=== PATIENT | female | born 1960 | race Caucasian/White ===

== ENCOUNTER → 2016-03-12 | Outpatient (CLI) | payer BC ==
[~2016-03-12] MED LIST: GABA-112 PO; HYDR0.5T PO; MULT-513 PO; OMEG10007 PO; VIT B 12
[2016-03-12 13:29] LABS: CHOLESTEROL 178 mg/dl (0-200); CHOLESTEROL/HDL RATIO 2.7; HDL CHOLESTEROL 65 mg/dl; TRIGLYCERIDES 96 mg/dl (0-150); VERY LOW DENSITY LIPOPROT CALC 19 mg/dl
== END | disposition home or self-care (01) ==
LOC: C.LABSPEC 12:40
PROVIDERS: ATTEND Internal Medicine
DX: E78.5 Hyperlipidemia, unspecified (principal); E03.9 Hypothyroidism, unspecified; E55.9 Vitamin D deficiency, unspecified

== ENCOUNTER → 2016-07-21 | Outpatient (CLI) | payer BC | END | disposition home or self-care (01) | LOC: C.PAPS 10:57 | PROVIDERS: ATTEND Obstetrics & Gynecology | DX: Z01.419 Encounter for gynecological examination (general) (routine) without abnormal findings (principal); Z11.51 Encounter for screening for human papillomavirus (HPV) ==

== ENCOUNTER → 2016-09-24 | Outpatient (CLI) | payer BC ==
--- NOTE | 2016-09-24 12:43 | MAMMOGRAPHY REPORT ---
BILATERAL DIGITAL SCREENING MAMMOGRAM TOMOSYNTHESIS WITH CAD: 09/24/2016 CLINICAL HISTORY: Routine screening. Patient has no complaints. TECHNIQUE: Breast tomosynthesis in addition to standard 2D mammography was performed. Current study was also evaluated with a Computer Aided Detection (CAD) system. COMPARISON: Comparison is made to exams dated: 09/19/2015 mammogram, 09/07/2014 mammogram, 09/06/2013 arie mogram, 08/31/2012 mammogram, 08/26/2011 mammogram, and 08/20/2010 mammogram - [facility] er. BREAST COMPOSITION: There are scattered areas of fibroglandular density in both breasts. FINDINGS: There is a 4.5 mm nodular asymmetry in the anterior subareolar left breast, only seen on t he MLO view, for which additional spot compression tomosynthesis views and possibly ultrasound are re commended. No other suspicious mass, architectural distortion or cluster of microcalcifications is seen bilatera lly. IMPRESSION: ACR BI-RADS CATEGORY 0: INCOMPLETE EVALUATION: NEED ADDITIONAL IMAGING EVALUATION The 4.5 mm nodular asymmetry in the left subareolar breast needs additional evaluation. The patient will be called to schedule an appointment. Approximately 10% of breast cancers are not detected with mammography. A negative mammographic report should not delay biopsy if a clinically suggestive mass is present. Eunice Sheikh M.D. ay/:09/24/2016 08:08:17 Chocolate Dipper: Yesenia SÁNCHEZ)(Lobo), [facility] letter sent: Addl Imaging 0 BI-RADS Code: ACR BI-RADS Category 0: Incomplete Evaluation: Need Additional Imaging Evaluation
== END | disposition home or self-care (01) ==
LOC: C.MAMM 07:26
PROVIDERS: ATTEND Obstetrics & Gynecology
DX: Z12.31 Encounter for screening mammogram for malignant neoplasm of breast (principal); N64.89 Other specified disorders of breast

== ENCOUNTER → 2016-10-02 | Outpatient (CLI) | payer BC ==
--- NOTE | 2016-10-02 12:46 | MAMMOGRAPHY REPORT ---
UNILATERAL LEFT DIGITAL DIAGNOSTIC MAMMOGRAM TOMOSYNTHESIS AND TARGETED LEFT ULTRASOUND: 10/02/2016 CLINICAL HISTORY: Callback from screening mammogram for left breast asymmetry. TECHNIQUE: Breast tomosynthesis in addition to standard 2D mammography was performed. Spot compress ion left MLO 2-D and tomosynthesis images were obtained. COMPARISON: Comparison is made to exams dated: 09/24/2016 mammogram, 09/19/2015 mammogram, 09/07/2014 ma mmogram, 09/06/2013 mammogram, 08/31/2012 mammogram, and 08/26/2011 mammogram - [facility]. BREAST COMPOSITION: There are scattered areas of fibroglandular density in the left breast. FINDINGS: The spot compression views of the left breast demonstrate a persistent low density 5 mm no dular asymmetry in the left subareolar breast on the MLO view only. The asymmetry appears similar on the additional views to the prior 2016 exam. Targeted ultrasound was performed of the left subareolar breast in the region of the mammographic asy mmetry. There is mild benign duct ectasia in the left subareolar breast. Additionally, there is an oval anechoic benign simple cyst measuring 3 x 3 mm in the left subareolar breast, which likely corre sponds with the mammographic asymmetry. No suspicious solid masses are evident. IMPRESSION: ACR BI-RADS CATEGORY 2: BENIGN, TARGETED ULTRASOUND ACR BI-RADS CATEGORY 2: BENIGN Small 3 mm benign simple cyst in the left subareolar breast, which is felt to correspond with the arie mographic asymmetry. There is no mammographic or targeted sonographic evidence of malignancy. A 1 ye ar screening mammogram is recommended. The patient has been verbally notified of the results. Approximately 10% of breast cancers are not detected with mammography. A negative mammographic report should not delay biopsy if a clinically suggestive mass is present. Shana Sol M.D. ah/:10/02/2016 10:58:25 Figure Model: Mary SÁNCHEZ)(Lobo), [facility] letter sent: Normal 1/2 BI-RADS Code: ACR BI-RADS Category 2: Benign Ultrasound BI-RADS: ACR BI-RADS Category 2: Benign
== END | disposition home or self-care (01) ==
LOC: C.MAMM 09:04
PROVIDERS: ATTEND Obstetrics & Gynecology
DX: N60.02 Solitary cyst of left breast (principal)

== ENCOUNTER → 2016-12-10 | Outpatient (CLI) | payer BC ==
[2016-12-10 13:09] LABS: THYROID STIMULATING HORMONE 1.45 uIu/ml (0.300-4.500)
== END | disposition home or self-care (01) ==
LOC: C.LABSPEC 12:13
PROVIDERS: ATTEND Internal Medicine
DX: E03.9 Hypothyroidism, unspecified (principal); Z79.899 Other long term (current) drug therapy

== ENCOUNTER → 2017-02-10 | Outpatient (CLI) | payer BC ==
--- NOTE | 2017-02-10 15:30 | DIAGNOSTIC IMAGING REPORT ---
R HAND 2 VIEWS HISTORY: 56 years-old Female M12.30 follow-up study in a patient with rheumatoid arthritis COMPARISON: Right hand radiographs 03/28/2015 TECHNIQUE: PA and lateral views of the right and FINDINGS: Mild periarticular osteopenia. Moderate first carpometacarpal osteoarthritis. Moderate joint space narrowing with subchondral sclerosis and mild marginal spurring is seen throughout the interphalangeal joints which appear unchanged. Mild metacarpophalangeal degenerative changes also noted. Mild radiocarpal joint space narrowing. No erosive changes identified. Soft tissues are unremarkable without opaque foreign body. IMPRESSION: 1. No acute bony abnormality. No erosive changes identified to suggest inflammatory arthropathy. 2. Stable appearing arthritis as above. The above report was generated using voice recognition software. It may contain grammatical, syntax or spelling errors. Electronically signed by: Ignacio Villareal M.D. 02/10/2017 3:28 PM Dictated Date/Time: 02/10/2017 3:25 PM
--- NOTE | 2017-02-10 15:39 | DIAGNOSTIC IMAGING REPORT ---
L FOOT 2 VIEWS HISTORY: 56 years-old Female M12.30 follow-up study in a patient with rheumatoid arthritis. Left foot pain. COMPARISON: Left foot radiograph 03/28/2015 TECHNIQUE: 3 views of the left foot FINDINGS: No acute fracture or dislocation. Mild first MTP joint joint space narrowing with marginal spurring and subchondral sclerosis. Mild multidigit interphalangeal joint space narrowing is also present. There is a focal marginal erosion involving the lateral aspect of the fifth metatarsal head with mild associated soft tissue swelling, new from prior. No definite additional erosions identified. Mild dorsal forefoot soft tissue swelling. Mild marginal spurring of the talonavicular joint. Tiny enthesophytes about the plantar and Achilles fashion sites of the calcaneus. IMPRESSION: 1. No acute fracture or subluxation. 2. Small marginal erosion involving the lateral aspect of the fifth metatarsal head with associated soft tissue swelling is new from prior study, suggesting inflammatory arthropathy. The above report was generated using voice recognition software. It may contain grammatical, syntax or spelling errors. Electronically signed by: Ignacio Villareal M.D. 02/10/2017 3:37 PM Dictated Date/Time: 02/10/2017 3:34 PM
--- NOTE | 2017-02-10 15:49 | DIAGNOSTIC IMAGING REPORT ---
LEFT HAND 2 VIEWS CLINICAL HISTORY: Hand pain. Arthritis. FINDINGS: 2 views of left hand are compared to study dated 03/28/2015. The skeletal structures are well mineralized for age. No fracture is seen. There is minimal degenerative narrowing at the radiocarpal articulation. Mild to moderate osteoarthritic change with bony overgrowth and sclerosis is seen at the first carpometacarpal joint. Minimal osteoarthritic change is present involving the first metacarpophalangeal joint and the interphalangeal joints. No bony erosion is identified. The overlying soft tissues are normal in appearance. IMPRESSION: Osteopenia and arthritic change as above. No acute bony abnormality is seen and the findings are similar to the 03/28/2015 examination. Electronically signed by: Ric Gandhi M.D. 02/10/2017 3:48 PM Dictated Date/Time: 02/10/2017 3:46 PM
--- NOTE | 2017-02-10 15:50 | DIAGNOSTIC IMAGING REPORT ---
RIGHT FOOT 2 VIEWS CLINICAL HISTORY: Arthritis. FINDINGS: AP and lateral views of the right foot are compared to study dated 03/28/2015. The skeletal structures are well mineralized for age. No fracture is seen. Mild arthritic change is present at the first metatarsophalangeal joint. The joint spaces are otherwise preserved. The overlying soft tissues are within normal limits. No erosive change is seen. IMPRESSION: No acute bony abnormality is seen in the right foot. Electronically signed by: Ric Gandhi M.D. 02/10/2017 3:49 PM Dictated Date/Time: 02/10/2017 3:48 PM
== END | disposition home or self-care (01) ==
LOC: C.RAD1850 14:56
PROVIDERS: ATTEND Internal Medicine
DX: M12.30 Palindromic rheumatism, unspecified site (principal); M15.4 Erosive (osteo)arthritis; M85.842 Other specified disorders of bone density and structure, left hand; M18.12 Unilateral primary osteoarthritis of first carpometacarpal joint, left hand; M19.042 Primary osteoarthritis, left hand

== ENCOUNTER → 2017-04-09 | Outpatient (CLI) | payer BC ==
[2017-04-09 14:34] LABS: BASO % 0.6 %; BASO ABS # 0.03 K/uL (0-0.2); EOS % 4.1 %; EOS ABS # 0.22 K/uL (0-0.5); HEMATOCRIT 44.5 % (37-47); HEMOGLOBIN 14.9 g/dL (12.0-16.0); IG# 0.01 K/uL (0.00-0.02); LYMPH % 26.9 %; LYMPH ABS # 1.44 K/uL (1.2-3.4); MEAN CELL VOLUME 94.3 fL (80-100); MEAN CORPUSCULAR HEMOGLOBIN 31.6 pg (25-34); MEAN CORPUSCULAR HGB CONC 33.5 g/dl (32-36); MONO % 7.5 %; NEUT % 60.7 %; NEUT ABS # 3.25 K/uL (1.4-6.5); PLATELET COUNT 283 K/uL (130-400); RED CELL DISTRIBUTION WIDTH CV 12.4 % (11.5-14.5); WHITE BLOOD COUNT 5.35 K/uL (4.8-10.8)
[2017-04-09 14:35] LABS: HEMOGLOBIN A1C 5.7 % (4.5-5.6)
[2017-04-09 14:45] LABS: ALBUMIN 3.9 gm/dl (3.4-5.0); ALT/SGPT 21 U/L (12-78); AST/SGOT 11 U/L (15-37); BLOOD UREA NITROGEN 15 mg/dl (7-18); CALCIUM 9.1 mg/dl (8.5-10.1); CARBON DIOXIDE 28 mmol/L (21-32); CHOLESTEROL 200 mg/dl (0-200); CREATININE 0.81 mg/dl (0.60-1.20); GLUCOSE 80 mg/dl (70-99); POTASSIUM 4.1 mmol/L (3.5-5.1); SODIUM 137 mmol/L (136-145)
[2017-04-09 14:56] LABS: ALKALINE PHOSPHATASE 55 U/L (45-117); LDL CHOLESTEROL (DIRECT) 129 mg/dl
== END | disposition home or self-care (01) ==
LOC: C.LABSPEC 13:11
PROVIDERS: ATTEND Internal Medicine
DX: R20.0 Anesthesia of skin (principal); E78.5 Hyperlipidemia, unspecified; E03.9 Hypothyroidism, unspecified

== ENCOUNTER → 2017-05-06 | Outpatient (CLI) | payer BC ==
[2017-05-13 14:44] LABS: FECAL OCCULT BLOOD #1 NEGATIVE (NEGATIVE); FECAL OCCULT BLOOD #2 NEGATIVE (NEGATIVE); FECAL OCCULT BLOOD #3 NEGATIVE (NEGATIVE)
== END | disposition home or self-care (01) ==
LOC: C.LABSPEC 14:28
PROVIDERS: ATTEND Internal Medicine
DX: Z12.11 Encounter for screening for malignant neoplasm of colon (principal)

== ENCOUNTER → 2017-09-30 | Outpatient (CLI) | payer BC ==
--- NOTE | 2017-09-30 14:55 | MAMMOGRAPHY REPORT ---
BILATERAL DIGITAL SCREENING MAMMOGRAM TOMOSYNTHESIS WITH CAD: 09/30/2017 TECHNIQUE: The study was acquired using full field digital technology and interpreted from soft copy. Breast tomosynthesis in addition to standard 2D mammography was performed. Current study was also ev aluated with a Computer Aided Detection (CAD) system. COMPARISON: Comparison is made to exams dated: 10/02/2016 mammogram, 09/24/2016 mammogram, 09/19/2015 ma mmogram, 09/07/2014 mammogram, 09/06/2013 mammogram, and 08/31/2012 mammogram - [facility] BREAST COMPOSITION: There are scattered areas of fibroglandular density in both breasts. FINDINGS: No suspicious masses, calcifications, or areas of architectural distortion are noted in either breast . There has been no significant interval change compared to prior exams. IMPRESSION: ACR BI-RADS CATEGORY 1: NEGATIVE There is no mammographic evidence of malignancy. A 1 year screening mammogram is recommended.( 019) The patient will receive written notification of the results. Some breast cancers are not detected with mammography. A negative mammographic report should not hugo y biopsy if a clinically suggestive mass is present. Shana Sol M.D. ah/:09/30/2017 08:21:07 Frontload Driver: RT Marvel(R)(M), [facility] letter sent: Normal 1/2 BI-RADS Code: ACR BI-RADS Category 1: Negative
== END | disposition home or self-care (01) ==
LOC: C.MAMM 07:57
PROVIDERS: ATTEND Internal Medicine
DX: Z12.31 Encounter for screening mammogram for malignant neoplasm of breast (principal)

== ENCOUNTER 2023-11-06 05:19 | Observation (INO) ==
--- NOTE | 2023-10-02 11:58 | PAT Medication Instructions ---
Medication Instructions Date of Service October 02, 2023 Home Medications Medication Instructions Recorded hydroxychloroquine 200 mg tablet 200 mg PO DAILY #90 tabs 04/23/23 biotin 10 mg tablet 10 mg PO DAILY cyanocobalamin (vitamin B-12) 500 mcg tablet 500 mcg PO DAILY ibuprofen 200 mg capsule 200 mg PO BID PRN Pain kidstjylshad-Po-nbcr-minerals (Multiple Vitamin, Womens tablet) 1 tab PO DAILY bupropion HCl 300 mg 24 hr tablet, extended release (Wellbutrin XL) 150 mg PO BID cholecalciferol (vitamin D3) 125 mcg (5,000 unit) capsule 125 mcg PO DAILY hydroxychloroquine 200 mg tablet 200 mg PO DAILY levothyroxine 175 mcg tablet 88 mcg PO QAM ASK your surgeon for instructions ibuprofen 200 mg capsule 200 mg PO BID PRN Pain ASK your prescriber and surgeon hydroxychloroquine 200 mg tablet 200 mg PO DAILY DO NOT take the morning of surgery biotin 10 mg tablet 10 mg PO DAILY cyanocobalamin (vitamin B-12) 500 mcg tablet 500 mcg PO DAILY wdwsggkezumv-Ql-tovy-minerals (Multiple Vitamin, Womens tablet) 1 tab PO DAILY cholecalciferol (vitamin D3) 125 mcg (5,000 unit) capsule 125 mcg PO DAILY Take morning of surgery With a small sip of water, OTHERWISE NOTHING TO EAT OR DRINK AFTER MIDNIGHT: bupropion HCl 300 mg 24 hr tablet, extended release (Wellbutrin XL) 150 mg PO BID levothyroxine 175 mcg tablet 88 mcg PO QAM Take evening before surgery bupropion HCl 300 mg 24 hr tablet, extended release (Wellbutrin XL) 150 mg PO BID Other Notes If you have any questions please call us at [phone] or [phone] or [phone] or [phone]
--- NOTE | 2023-10-13 09:28 | Anesthesiology Consultation ---
Date of Service October 13, 2023 Assessment & Plan (1) Encounter for pre-operative examination: - cardiology office visit 04/23/23 [facility]: "...presents for cardiology evaluation due to palpitations. Describes chest fluttering and racing heartbeats on nearly a daily basis. No associated lightheadedness, dizziness, syncope or near syncope...attributes symptoms at times to stress and anxiety...calculated atherosclerotic cardiovascular disease risk is 4.9% utilizing traditional risk factors, however, history of rheumatoid arthritis not accounted for...recommendations/plan: CT cardiac calcium score...echo...external ekg 2 to 7 days..." Ordered testing was completed and resulted as above, nothing additional needed per discussion with Dr. Do. - Outpatient joint assessment: Patient is currently scheduled for inpatient pathway. Chart Review Chart Review: Acceptable Risk for Surgery and Patient seen in Pre Admission Testing Teaching & Discussion Pre-Anesthesia Teaching/Discussion Notes: Instructed NPO after midnight before surgery, except medications with 15 cc of water. Medication instructions provided according to the PAT guidelines. History Surgery Operation Date: 11/06/23 07:00 Proposed Procedures p Right Total Hip Arthroplasty Anterior - Ish Tuttle, Height/Weight Height: 5 ft 5 in Weight: 75.1 kg Allergies Allergy/AdvReac Type Severity Reaction Status Date / Time Penicillins Allergy Mild RASH Verified 10/13/23 08:12 Medications Home Medications Medication Instructions Recorded Confirmed Last Taken biotin 10 mg tablet 10 mg PO DAILY 11/06/18 10/02/23 Unknown cyanocobalamin (vitamin B-12) 500 500 mcg PO DAILY 11/06/18 10/02/23 Unknown mcg tablet ibuprofen 200 mg capsule 200 mg PO BID PRN Pain 11/06/18 10/02/23 Unknown mpanbbxolnah-Jw-hmpf-minerals 1 tab PO DAILY 11/06/18 10/02/23 Unknown (Multiple Vitamin, Womens tablet) bupropion HCl 300 mg 24 hr tablet, 150 mg PO BID 04/23/22 10/02/23 Unknown extended release (Wellbutrin XL) cholecalciferol (vitamin D3) 125 125 mcg PO DAILY 04/23/22 10/02/23 Unknown mcg (5,000 unit) capsule hydroxychloroquine 200 mg tablet 200 mg PO DAILY #90 tabs 04/23/23 10/02/23 Unknown levothyroxine 175 mcg tablet 88 mcg PO QAM 05/11/23 10/02/23 Unknown lorazepam 0.5 mg tablet 0.5 mg PO DAILY PRN Anxiety 10/13/23 10/13/23 Unknown Additional Notes: Patient states that she has lorazepam 0.5 mg taken rarely prn for anxiety-she was advised this can be continued prn and it was written on provided medication instructions. She verbalized understanding, denied questions, concerns or additional medications. Past Medical History Medical History (Updated 10/13/23 @ 09:40 by Eliza Frazier PA-C) Anxiety Depression History of COVID-19 (2019) no hosp; resolved Hx of ovarian cyst (~2008) Hx of rheumatoid arthritis Hypothyroidism Osteoarthritis Patient denies h/o stroke, seizures, heart attack, heart failure, DM, HTN, blood clots/DVTs or blood transfusions. Exercise / Class Metabolic Activity II 4-5 Yardwork/Stairs/Walk up hill (denies chest discomfort or shortness of breath with one flight of stairs) Past Family History Family History Other Cancer Diabetes Heart disease Denies family history of Ovarian cancer Breast cancer Colorectal cancer Past Surgical History Surgical History (Updated 10/13/23 @ 09:40 by Eliza Frazier PA-C) H/O varicose vein ligation History of back surgery lumbar Hx of tubal ligation S/P cervical spinal fusion x 3 - C4-C6; full ROM S/P colonoscopy S/P knee surgery right Status post hysteroscopic ablation of endometrium Status post repair of nerve right ulnar Past Anesthesia History No Hx of Anesthesia Complications and No Family Hx of Anesthesia Complications History of PONV No Hx of Motion Sickness and History of PONV (denies needing scop patch) Social History Smoking Status: Never smoker Do You Dip or Chew Tobacco: No Hx Alcohol Use: Yes Alcohol type: wine alcohol intake frequency: a few times a month Hx Substance Use: No substance use type: does not use Review of Systems Occasional snoring, denies witnessed apneas. Patient denies chest pain, shortness of breath, dyspnea on exertion, reflux, fever, chills, cough, wheezing, or palpitations. Physical Exam Vital Signs Vitals BP 120/64 P 79 TEMP 97.8 SP02 97% on RA RESP 18 Physical Patient resting comfortably in chair in no acute distress, alert and oriented, responding appropriately throughout visit Limited cervical extension range of motion without pain TMD 3.5 finger breadths Mallampati Score 2 Dentition: several caps/crowns, denies chipped or loose teeth, implants or bridges Lungs: normal respiratory effort. Good air movement, clear throughout to auscultation, no adventitious breath sounds Cardiac: regular rate and rhythm, no murmurs noted Carotid arteries: negative bruit bilat Lab Results Anesthesia Preop Results Results Anesthesia Widget: WBC 4.36 K/ul (4.8-10.8) L 10/13/23 Hgb 13.8 g/dl (12.0-16.0) 10/13/23 Hct 40.7 % (37.0-47.0) 10/13/23 Plt 293 K/uL (130-400) 10/13/23 Na 139 mmol/L (136-145) 10/13/23 K 4.4 mmol/L (3.5-5.1) 10/13/23 Cl 106 mmol/L (98-107) 10/13/23 CO2 29 mmol/L (21-32) 10/13/23 BUN 15 mg/dl (6-23) 10/13/23 Creat 0.73 mg/dl (0.6-1.2) 10/13/23 Glucose Level 95 mg/dl (70-99(Fasting)) 10/13/23 PT 10.3 Seconds (9.0-12.0) 10/13/23 PTT 25 Seconds (21-31) 10/13/23 INR 0.9 (0.9-1.1) 10/13/23 Blood Type B Positive 10/13/23 Antibody Screen NEGATIVE 10/13/23 Testing Electrocardiogram Date: 10/13/23 NSR, rate 70 bpm Chest X-Ray Date: 10/13/23 No acute process. Echocardiogram Date: 04/30/23 EF 60-64% Normal LV wall motion Severe focal mitral annular calcification Grade I diastolic dysfunction Stress Test Date: 11/11/17 No evidence of inducible ischemia No significant valvular heart disease MPHR 94% METS 9.7 EF 55-60% Normal LV wall motion at rest Mild diastolic dysfunction Cervical Spine Date: 10/13/23 1. No fractures within the cervical spine. 2. Alignment remains intact throughout flexion and extension. 3. Postoperative and degenerative changes again noted. This is similar to the prior study. Other Testing Cardiac calcium score 04/30/23 Total coronary calcium score is 0. Cardiac event monitor 04/29/23 Sinus rhythm (66-127, avg 87 bpm) Rare isolated SVEs, SVE couplets, isolated VEs Ventricular bigeminy was present
[~2023-11-06 05:19] MED LIST changes: +ALLERGY Noted to ORDERED Medication SCH; -GABA-112 PO; -HYDR0.5T PO; -MULT-513 PO; -OMEG10007 PO; -VIT B 12
--- OUTSIDE RECORDS SUMMARY | 2023-11-06 05:22 | External Medical Summary | Summary of Care ---
Author Name Unknown Organization [facility] Address [address] [place] [address] Phone [phone] Care Team Providers Care Cafe Operator Name Role Phone Nam Fair MD Primary Care Provid er Reason for Visit * Reason Comments eRx-Medication Refill Encounter Details Date Type Department Care Team (Late st Contact Info) Description 10/23/2023 Refill [facility] [address] [facility] [place] [address] Nam Fair MD [address] [place] [address] Acquired hypothyroidism Allergies Active Allergy Reactions Criticality Noted Date Comments Penicillins Low 01/20/2002 Other reaction(s): RASH documented as of this encounter (statuses as of 10/23/2023) Medications Medication Sig Dispensed Refills Start Date End Date Status Multiple Vitamin (MULTIVITAMINS) Capsule 1 daily Active B Complex Vitamins (VITAMIN B COMPLEX) Tablet 1 daily Active Cholecalciferol (VITAMIN D) 1000 UNITS Tablet 1 daily Active Biotin 7500 MCG TABS 1 daily Acti ve LORAzepam (ATIVAN) 0.5 MG Tablet As needed 09/12/2018 Active Vitamin C 500 MG Oral Tablet (ASCORBIC ACID) Take 1 Tablet by mouth in the morning. Active Hydroxychloroquine Sulfate 200 MG Oral Tablet (Plaquenil)Indicatio ns:Palindromic rheumatism TAKE 1 TABLET DAILY 90 Tablet 3 12/13/2021 Active buPROPion HCl ER (SR) 150 MG Oral Tablet Extended Release 12 Hour (Wellbutrin SR) TAKE 1 TABLET IN THE MORNING AND 1 TABLET BEFORE BEDTIME 180 Tablet 3 06/10/2023 Active Levothyroxine Sodium 88 MCG Oral Tablet (Levoxyl)Indications :Acquired hypothyroidism TAKE 1 TABLET DAILY FIRST THING IN THE MORNING 90 Tablet 1 10/23/2023 Active Levothyroxine Sodium 88 MCG Oral Tablet (Levoxyl)Indications :Acquired hypothyroidism TAKE 1 TABLET DAILY FIRST THING IN THE MORNING 90 Tablet 3 10/27/2022 4 Discontinued documented as of this encounter (statuses as of 10/23/2023) Active Problems Problem Noted Date Diagnosed Date MEDICATION USE AGREEMENT 07/17/2021 Acquired hypothyroidism 07/17/2021 Rheumatoid arthritis involvi ng multiple sites with positive rheumatoid factor 10/06/2019 Primary osteoarthritis involving multiple joints 06/07/2015 [facility] arthritis, thumb, degenerative 11/20/2014 DDD (degenerative disc disease), cervical 2014 DDD (degenerative disc disease), lumbar 11/21/19 15 documented as of this encounter (statuses as of 10/23/2023) Immunizations Name Administration Dates Next Due Pneumococcal Conjugate Vacci ne, 20-valent ([id number]) 03/21/2022 Seasonal Influenza Virus Vac cine, Unspecified Formulation 12/01/2019,11/30/2015 Seasonal Influenza, Intradermal 11/30/2015 Seasonal Influenza, PF, 6 M & above, IM , (FluLaval or Fluzone) 12/19/2022,12/12/2021,12/01/2019 documented as of this encounter Social History Tobacco Use Types Packs/Day Years Used Date Smoking Tobacco: Never Smokeless Tobacco: Never Alcohol Use Standard Drinks/Week Comments No 0 (1 standard drink = 0.6 oz pur e alcohol) PHQ-2 Answer Date Recorded PHQ Adult Total Score 0 03/21/2022 Utilities Answer Date Recorded Do you have trouble paying y our heating, water, or electric bill? (Adult - for ages 18 years and over) Not on file 08/18/2023 Is your family able to pay t he heat, water, or electric bill? (Household - for ages 0-17 years) Not on file 08/18/2023 Does your family have access to good internet? (Household - for ages 0-17 years) Not on file 08/18/2023 Social Connections Answer Date Recorded How often do you feel lonely or isolated from those around you? (Adult - for ages 18 years and over) Not on file 08/18/2023 Sex and Gender Information Value Date Recorded Sex Assigned at Not on file Gender Identity Not on file Sexual Orientation Not on file Job Start Date Occupation Industry Not on file Not on file Not on file documented as of this encounter Miscellaneous Notes * Telephone Encounter - Stevie Donovan [facility] - 10/23/2023 3:22 PM EDTSigned Prescriptions: Disp Refills Levothyroxine Sodium 88 MCG Oral Tablet (L*90 Tab*1 Sig: TAKE 1 TABLET DAILY FIRST THING IN THE MORNINGAuthorizing Provider: NAM FAIR User:STEVIE DONOVAN documented in this encounter Plan of Treatment Upcoming Encounters Date Type Department Care Team (Late st Contact Info) Description 03/11/2024 9:00 AM EST Office Visit [facility] [address] [place] [address] Nam Fair MD [address] [place] [address] Health Maintenance Due Date Last Done Comments COVID-19 Vaccine (#1) 05/24/1964 HIV Screening 05/24/1974 Hepatitis C Screening 05/24/1977 DTaP,Tdap,and Td Vaccines (1 - Tdap) 05/24/1978 Zoster Vaccines (1 of 2) 05/24/1978 HPV/Co-Test 05/24/1989 Cologuard 05/24/2004 Colonoscopy 05/24/2004 Sigmoidoscopy 05/24/2004 Colorectal Cancer Screening 05/11/2022 Fecal Occult Blood Test 05/11/2022 05/11/2021 Depression Screening 03/21/2023 03/21/2022 Influenza Vaccine (FLU shot) (#1) 2023 12/19/2022, 12/12/2021, 12/01/2019, Additional history exists Mammogram 11/29/2023 11/28/2022, 11/01, 11/21/2020 TSH 03/10/2024 03/10/2023, 08/01, 03/21/2022, Additional history exists Cervical Cancer Screening 02/14/2025 Pap Smear 02/14/2025 02/14/2022 Diabetes Screening 03/10/2026 03/10/2023, 0 03/21/2022, 05/08/2021, Additional history exists Lipid Panel 03/10/2028 03/10/2023, 05/08/2021 Pneumococcal Vaccine: Pediatrics (0 to 5 Years) and At-Risk Patients (6 to 64 Years) Completed 03/21/2022 HPV (Gardasil) Vaccine Aged Out No lo nger eligible based on patient's age to complete this topic Hepatitis B Vaccine Aged Out No longe r eligible based on patient's age to complete this topic MENINGOCOCCAL (MENACTRA/MENVEO) Aged Out No longer eligible based on patient's age to complete this topic documented as of this encounter Medical Devices Not on filedocumented as of this encounter Visit Diagnoses Diagnosis Acquired hypothyroidism Unspecified hypothyroidism documented in this encounter Care Teams Cafe Operator Relationship Specialty Start Date End Date Nam Fair MD [address] [place] [address] PCP - General Family Medicine 07/17/21 documented as of this encounter
[2023-11-06] MEDS ORDERED: Nursing to Pharmacy Communication SCH (05:45)
[2023-11-06] MEDS: FAMOTIDINE 20 MG TAB PO SCH (05:53)
[2023-11-06] MEDS: GABAPENTIN 600 MG DOSE PO SCH (05:53)
[2023-11-06] MEDS: dexAMETHasone**PF** 10 MG/ML VIAL IV SCH (05:53)
[2023-11-06] MEDS: ACETAMINOPHEN 500 MG TAB PO SCH ×2 (05:53→16:27)
[2023-11-06] MEDS: LR 60ML/HR IV SCH (05:54)
[2023-11-06] MEDS: LR 500ML BOLUS, THEN 15ML/HR IV SCH (05:54)
[2023-11-06] MEDS ORDERED: ePHEDrine sulfate 50 MG/ML AMP IV PRN (06:22)
[2023-11-06] MEDS ORDERED: fentaNYL citrate PF 100 MCG/2 ML VIAL IV PRN (06:22)
[2023-11-06] MEDS ORDERED: ATROPINE SULFATE 0.1 MG/ML 10ML SYR IV PRN (06:22)
[2023-11-06] MEDS ORDERED: ONDANSETRON INJ 2 MG/ML 2 ML VIAL IV PRN ×2 (06:22→09:15)
[2023-11-06] MEDS ORDERED: BUPIVACAINE 0.5 % 5 MG/1 ML PF 10ML VIAL ONE (06:30)
[2023-11-06] MEDS ORDERED: fentaNYL citrate PF 100 MCG/2 ML VIAL ONE (06:33)
[2023-11-06] MEDS ORDERED: MIDAZOLAM HCL 1 MG/ML 2ML VIAL ONE (06:33)
--- NOTE | 2023-11-06 06:33 | History & Physical Bridge Note ---
Date of Service November 06, 2023 History & Physical Bridge Note I have examined the patient, reviewed the History & Physical and in the interval since the performance of the History & Physical I have noted the following changes of clinical significance: no changes noted
[2023-11-06] MEDS: TRANEXAMIC ACID 1,000 MG **IV Pre-op IV SCH (06:41)
[2023-11-06] MEDS ORDERED: PROPOFOL IV EMULSION 10 MG/ML 20 ML VIAL IV ONE (06:46)
[2023-11-06] MEDS: ceFAZolin 2000MG 2,000 MG/15 ML SYR IV SCH ×2 (07:10→17:06)
[2023-11-06] MEDS ORDERED: ONDANSETRON INJ 2 MG/ML 2 ML VIAL ONE (07:20)
[2023-11-06] MEDS: ROPIV 0.5% 246mg, Ketorolac 30mg, EPINEPHrine 0.5mg in NSS INFIL SCH (07:29)
[2023-11-06] MEDS: ORTHO JOINT ANESTHETIC ONE (07:30)
--- NOTE | 2023-11-06 07:59 | Operative Report ---
PG Post Operative Report Pre & Post Diagnosis Operation Date: 11/06/23 07:00 Pre-Op Diagnosis: Right Hip Degenerative Joint Disease Post-Op Diagnosis: Right Hip Degenerative Joint Disease I identified the patient and participated in the time-out.: Yes Procedure Operation Date: 11/06/23 07:00 Actual Procedures p Right Anterior Total Hip Arthroplasty(Right) - Ish Tuttle DO Surgeon Ish Tuttle DO Pelletizer Ish Ray PA-C Estimated Blood Loss 250 Findings Consistent with Post-Op Diagnosis Specimens Right femoral head Description of Procedure Implants used I used a ZimmerBiomet total hip arthroplasty system with a size 2 standard Avenir Complete stem, a 46 mm G7 cup with a 25mm screw, an E1 polyethylene liner, a 32 mm ceramic head with a -3.5 neck. Giselle arrived at the hospital for the above procedure. She was seen in the preoperative holding area and the operative extremity was identified and signed. She was given a spinal anesthetic, a preoperative antibiotic, and TXA. She was then taken back to the operating room and laid on the table in the supine position. She was given basic sedation. The operative leg was secured to a Puristst leg positioner. The hip was then prepped and draped in sterile fashion. A timeout was done and the patient and the operative extremity was properly identified. An anterior approach was used. Dissection was taken down through the fascia and the tensor muscle belly was retracted laterally and the rectus was retracted medially. The circumflex vessels were identified and ligated. The capsule was then incised and tagged for later repair. The femoral neck was then cut and the femoral head was removed. The acetabulum was exposed. Time was spent doing a complete circumferential labral release. Sequential reaming of the acetabulum up to a size 45 reamer was done. Final reamings were done under fluoroscopy to ensure appropriate version. A Biomet 46 mm G7 cup was then impacted into place. A single 25 mm screw was placed. The E1 polyethylene liner was then snapped into place. Surrounding soft tissues were then injected with 100 cc of an or thopedic pain control cocktail. The proximal femur was then exposed. Sequential broaching up to a size 2 broach was done. Off that broach a size 32 head with a -3.5 neck was trialed. The hip was reduced and fluoroscopic images showed anatomic alignment of the implants in acceptable length. The broach was removed. The final size 2 standard offset Avenir Complete stem was then impacted into place. A ceramic 32 head with a - 3.5 neck was then impacted onto the stem and the hip was reduced. Final fluoroscopic images showed anatomic alignment of the hip. The capsule was then closed with #1 Vicryl suture. A dilute betadyne lavage was then done for 3 minutes. The joint was then irrigated with normal saline solution. The fascia was closed with #1 PDS suture. Skin was closed with 2-0 Vicryl, aden, and a Silverlon dressing. She was then transferred to a hospital bed and taken to the post anesthesia care unit in stable condition. She tolerated the procedure well. Ish Ray PA-C, was present for the entire procedure. He was critical for patient positioning, prepping, draping, retraction exposure, wound closure and application of sterile dressing. I attest to the content of the Intraoperative Record and any orders documented therein. Any exceptions are noted below.
[2023-11-06] MEDS: TRANEXAMIC ACID 1,000 MG **IV Intra-op IV SCH (08:02)
--- NOTE | 2023-11-06 09:06 | Fluoroscopy Report ---
FL hip RT 1V CLINICAL HISTORY: Right anterior total hip arthroplastyright hip arthroplasty COMPARISON STUDY: Pelvis and hip radiographs of same day FLUOROSCOPY TIME: 13.5 seconds FLUOROSCOPY IMAGES: 1 EXPOSURE DOSE: 2.6144 mGy FINDINGS: Right hip arthroplasty demonstrates satisfactory alignment. Expected postoperative soft tis jane swelling and deep tissue air. No acute fracture or unexpected opaque foreign body. IMPRESSION: Right hip arthroplasty with expected postoperative changes. ACT 112: Negative or not required by law. Electronically signed by: Bruno Villareal M.D. 11/06/2023 9:04 AM
[2023-11-06] MEDS ORDERED: NALOXONE HCL 0.4 MG/1 ML VIAL/CARP IV PRN (09:15)
[2023-11-06] MEDS ORDERED: METOCLOPRAMIDE HCL INJ 5 MG/ML 2 ML VIAL IV PRN (09:15)
[2023-11-06] MEDS ORDERED: HYDROmorphone INJ 0.5 MG/0.5 ML SYR IV PRN (09:15)
[2023-11-06] MEDS ORDERED: oxyCODONE HCL IR 5 MG TAB (IMMEDIATE RELEASE) PO PRN (09:15)
[2023-11-06] MEDS ORDERED: LORazepam 0.5 MG TAB PO PRN (09:15)
[2023-11-06] MEDS ORDERED: MAGNESIUM HYDROXIDE SUSP 30 ML UDC PO PRN (09:15)
[2023-11-06] MEDS ORDERED: bisacodyL 10 MG SUPP PR PRN (09:15)
--- NOTE | 2023-11-06 09:41 | XRay Report ---
AP PELVIS, CROSSTABLE LATERAL RIGHT HIP History: Right total hip arthroplasty. Degenerative arthritis. Postop. FINDINGS: The patient is status post a right total hip arthroplasty. The hardware is intact. No fract ure or dislocation. Skin aden are in place. Partially visualized lumbar spinal fusion hardware. IMPRESSION: Right total hip arthroplasty. No evidence for hardware complication ACT 112: Negative or not required by law. Electronically signed by: Wally Laws M.D. 11/06/2023 9:40 AM
[2023-11-06] MEDS: KETOROLAC 30 MG/ML VIAL IV SCH (10:12)
[2023-11-06] MEDS: LEVOTHYROXINE SODIUM 88 MCG TABLET PO SCH (10:13)
[2023-11-06] MEDS: ASPIRIN 81 MG ECTAB PO SCH (10:14)
[2023-11-06] MEDS: HYDROXYCHLOROQUINE SULFATE 200 MG TAB PO SCH (10:14)
[2023-11-06] MEDS: MULTIVITAMIN TAB PO SCH (10:14)
[2023-11-06] MEDS: buPROPion SR 150 MG TABCR PO SCH (10:15)
[2023-11-06] MEDS: SODIUM CHLORIDE 0.9% 1,000 ML IV SCH (10:15)
[2023-11-06] MEDS: DOCUSATE SODIUM 100 MG CAP PO SCH (10:16)
--- NOTE | 2023-11-06 15:06 | Anesthesiology Progress Note ---
Date of Service November 06, 2023 Anesthesia Post Procedure Vital Signs Vital Signs: Temp Pulse Pulse Resp BP Pulse Ox O2 Del Method 11/06/23 12:25 98.1 F 77 18 122/72 96 Room Air 11/06/23 11:15 98.1 F 84 20 137/75 97 Room Air 11/06/23 09:47 98.2 F 77 16 130/73 98 Room Air 11/06/23 09:15 Room Air 11/06/23 09:15 98.1 F 70 20 122/76 98 Room Air 11/06/23 08:45 73 13 134/68 100 Nasal Cannula 11/06/23 08:35 78 16 147/80 H 100 Nasal Cannula 11/06/23 08:28 96.8 F L 82 18 142/74 H 99 Nasal Cannula 11/06/23 05:30 97.9 F 79 18 141/72 H 96 Room Air O2 Flow Rate 11/06/23 12:25 11/06/23 11:15 11/06/23 09:47 11/06/23 09:15 11/06/23 09:15 11/06/23 08:45 2 11/06/23 08:35 2 11/06/23 08:28 2 11/06/23 05:30 Transfer of Care Handoff Completed per policy Notes Mental Status: alert / awake / arousable and participated in evaluation Patient Amnestic to Procedure: Yes Nausea / Vomiting: adequately controlled Pain: adequately controlled Airway Patency, RR, SpO2: stable & adequate BP & HR: stable & adequate Hydration State: stable & adequate Neuraxial Anesthesia: was administered and sensory block is resolving Anesthetic Complications: no major complications apparent and Pt Satisfied with anesthetic care
[2023-11-06] MEDS: SENNA 8.6 MG TAB PO SCH (20:35)
--- NOTE | 2023-11-07 07:11 | Orthopedic Progress Note ---
Date of Service November 07, 2023 Assessment & Plan (1) Status post right hip replacement: Overall she is doing well. She is not having much pain in the right hip. She will be seen by physical therapy today for ambulation and range of motion exercises. She is on aspirin for DVT prophylaxis. She can be discharged to home later today. She will follow-up with orthopedics in 2 weeks. Adrienne Desai was seen and examined at bedside this morning. Overall she is doing very well. She is not having much pain in the right hip. She has been up and ambulating to the bathroom. She has no complaints.. Review of Systems All systems reviewed & are unremarkable except as noted in HPI & below. Physical Exam On physical examination of the right hip, the dressing is clean and dry. Her leg is out full extension. She has active dorsiflexion plantarflexion of her right ankle.. Results & Data Results & Data Laboratory Results . Diagnostic Findings Postoperative x-rays of the right hip show the prosthesis to be in anatomic alignment without any evidence of fracture, desiccation, or loosening.. PG Care Time/CCT Total # of Minutes Spent Total Time Spent with Patient: Total time spent is greater than 50% in coordination of care (as documented) at patient's floor/unit and/or counseling patient: Coding Level of Care Code 18318 Post Operative Follow-Up Diagnoses Status post right hip replacement Z96.641
--- NOTE | 2023-11-07 07:12 | Discharge Summary ---
Date of Service November 07, 2023 Principal Diagnosis Same as "Discharge Diagnosis" noted below under Discharge Instructions. Discharge Exam On physical examination of the right hip, the dressing is clean and dry. Her leg is out full extension. She has active dorsiflexion plantarflexion of her right ankle.. Discharge Data Procedures Performed Operation Date: 11/06/23 07:00 Actual Procedures p Right Anterior Total Hip Arthroplasty(Right) - Ish Tuttle DO Ordered Studies 11/06/23 07:00 FL hip RT 1V Routine Hospital Course (1) Status post right hip replacement: On November 06, 2023 Giselle arrived at [facility] and underwent a right hip replacement without complication. She had a spinal anesthetic. Postoperatively she was started on aspirin for DVT prophylaxis and transferred to the general orthopedic floors. Her hospital course was uneventful. On postop day #1, her vital signs were stable and her pain was well-controlled. She was able to participate well with physical therapy doing ambulation and range of motion exercises. She was then discharged to home. She will follow-up with orthopedics in 2 weeks. PG Care Time/CCT Total # of Minutes Spent Total Time Spent with Patient: Total time spent is greater than 50% in coordination of care (as documented) at patient's floor/unit and/or counseling patient: Discharge Plan Discharge Items Patient Disposition: Home - Self-Care Reason For Visit: POST SURGICAL CARE Discharge Diagnosis: Right hip replacement Activity: Per Instructions section Non-emergency contact: Surgeon Call non-emergency contact if: your wound has increased redness and your wound has increased drainage Follow-up/Referrals: Pamela Ramirez MD [Primary Care Provider] - Diet: Regular Addtl Attending Provider Instructions: Activity and Therapy Recommendations: * If you are using [facility] then therapy will be provided at your home until they feel you have accomplished all of your goals. * If you are using [facility] then Physical Therapy will be provided until they feel you are ready to start Outpatient Physical Therapy. * If you are not using home therapy then Outpatient Physical Therapy should start about 3-5 days from your day of surgery. Therapy will last about 6-10 weeks * You were shown a series of exercises in the hospital. Do these exercises three times each day including the exercises you were shown in physical therapy. * Get up and walk several times each day.~ For the first four weeks, try not to stand or walk for more than one hour at a time. If you do stand or walk for more than one hour, you will not hurt anything, but your leg will likely swell.~~ * As you feel comfortable, you may change from the walker or crutches to a cane and~then to independent walking. Medications: * Narcotic You will likely be sent home from the hospital with a prescription for the narcotic pain medication that worked best throughout your stay. * Cefadroxil -take the antibiotic twice a day for 10 days to help prevent infection. * Aspirin Most patients will be required to take Aspirin 81mg twice a day for 6 weeks after surgery. This is obtained [id number] and a prescription is not necessary. * Other medications may be prescribed for specific circumstances. If you have any questions, please call the office at . * Resume previous home medications unless otherwise instructed TEDs/Elastic Stockings: The white elastic stockings help limit swelling and prevent blood clots from forming in your legs. The more you wear them, the more they work. Wear them for six weeks. Dressing Care: Leave the Silverlon dressing in place for 7 days. After 7 days you may remove the dressing. If the incision is not draining then you may leave the aden open to air. If there is a little bit of drainage or if the aden are getting stuck on your clothing then cover the incision with a dry dressing. The aden will be removed at your 2 week follow-up appointment. Showering: You may shower with the Silverlon dressing in place. Do not let the shower spray hit the dressing directly. Pat the Silverlon dressing dry. If the dressing becomes wet underneath, then simply remove the dressing. Keep the incision dry until you are 7 days out from the day of surgery. After 7 days you may remove the Silverlon dressing and shower with the aden exposed. Let soapy water run over the aden and pat them dry. Do not scrub or soak the incision. Things To Watch For: * Drainage from the incision site that occurs more than one week after your surgery. * Increased redness at the incision site. * Fever above 102 degrees Fahrenheit. * Unusual chest pain or shortness of breath. * Call [facility] at with any of the above problems Follow-Up Visit: Follow-up with Dr. Tuttle's PA (Ish Ray) 2-3 weeks after your day of surgery. He will remove your aden and answer any questions. If you have any additional questions or concerns, Dr Tuttle is usually in the office at the same time and will be available An appointment was probably scheduled when you signed-up for surgery in the office. If you have any questions call Office Instructions: More detailed instructions as well as Frequently Asked Questions were provided in a folder by our office when you signed-up for surgery. Please review these instructions when you get home. If you have any further questions or concerns, please feel free to call the office at [phone] Pending Studies at Discharge: No Stand-Alone Forms: [facility] [employer] Smoking Cessation Medications and DC Order Prescriptions: New oxycodone 5 mg Tablet 5 mg PO Q4H PRN (Reason: pain) Qty: 30 0RF cefadroxil 500 mg capsule 500 mg PO BID 10 Days Qty: 20 0RF aspirin 81 mg Tablet,Delayed Release (Dr/Ec) 81 mg PO BID 42 Days Qty: 84 0RF Continued hydroxychloroquine 200 mg tablet 200 mg PO DAILY Qty: 90 3RF biotin 10 mg tablet 10 mg PO DAILY ibuprofen 200 mg capsule 200 mg PO BID PRN (Reason: Pain) Multiple Vitamin, Womens tablet 1 tab PO DAILY cyanocobalamin (vitamin B-12) 500 mcg tablet 500 mcg PO DAILY bupropion HCl [Wellbutrin XL] 300 mg tablet extended release 24 hr 150 mg PO BID levothyroxine 175 mcg tablet 88 mcg PO QAM cholecalciferol (vitamin D3) 125 mcg (5,000 unit) capsule 125 mcg PO DAILY lorazepam 0.5 mg Tablet 0.5 mg PO DAILY PRN (Reason: Anxiety) acetaminophen [Tylenol Ex Str Arthritis Pain] 500 mg Tablet 500 mg PO Q6H PRN (Reason: Pain) Discharge Orders: Discharge Order (Routine); Ordered 11/07/23 Ordered By: Ish Tuttle Admission Data Admit Date/Time: 11/06/23 08:21 Attending Provider: Ish Tuttle Admit Provider: Ish Tuttle Primary Care Provider: Pamela Ramirez
[2023-11-07 07:38] VITALS: BP 114/70; PULSE 79; RESP 18; TEMP 97.9; O2SAT 97
[2023-11-07] MEDS: dexAMETHasone 4 MG TAB PO SCH (09:11)
== END 2023-11-07 12:44 | disposition home or self-care (01) ==
LOC: ASU 05:19 → 3E 05:19